=== PATIENT | female | born 1970 | race American Indian/Alaskan Native ===

== ENCOUNTER 2024-11-30 19:26 | Emergency (ER) | payer MEDICARE, MEDICAID ==
[~2024-11-30] VITALS: Ht 157.5 cm; Wt 99.0 kg
[2024-11-30] MEDS ORDERED: DAPTOmycin 500 MG/10 ML VIAL IV ONE (20:00)
[2024-11-30] MEDS ORDERED: SODIUM CHLORIDE 0.9% 1,000 ML IV ONE (20:00)
[2024-11-30 20:06] LABS: BASOPHILS 0.3 % (0.1-1.2); EOSINOPHILS 0.2 % (0.7-5.8); LYMPHOCYTES 4.3 % (19.3-51.7); MCH 21.7 PG (25.6-32.2); MCHC 29.7 g/dL (32.2-35.5); MCV 73.1 fL (79.4-94.8); MONOCYTES 4.5 % (4.7-12.5); NEUTROPHILS 90.2 % (34.0-71.1); RBC 4.98 M/uL (3.93-5.22)
[2024-11-30 20:16] LABS: INR 1.06 (0.80-1.30); PROTIME 13.1 Sec (11.2-14.2)
[2024-11-30 20:22] LABS: ALT (SGPT) 23.0 U/L (14-59); AST (SGOT) 10.0 U/L (15-37); GLOMERULAR FILTRATION RATE,EST 64.0 mL/min (>60); PROTEIN, TOTAL 7.8 g/dL (6.4-8.2); UREA NITROGEN 21.0 mg/dL (7-18)
[2024-11-30 20:27] LABS: LACTIC ACID, BLOOD 1.4 mmol/L (0.4-2.0)
[2024-11-30] MEDS ORDERED: MORPHINE SULFATE 4 MG/ML VIAL IV ONE (20:30)
[2024-11-30 23:04] LABS: BLOOD/HGB, URINE NEGATIVE (Negative); KETONE, URINE NEGATIVE (Negative); LEUK ESTERASE, URINE NEGATIVE (negative); NITRITE, URINE NEGATIVE (negative)
[2024-11-30] MEDS ORDERED: HYDROCODON-ACE1 EA10 PO (23:26)
[2024-11-30] MEDS ORDERED: ONDANSETRON ODT8 MG PO (23:26)
[2024-11-30] MEDS ORDERED: ONDANSETRON 4 MG HOME.PACK SL ONE (23:30)
[2024-11-30] MEDS ORDERED: HYDROCODONE BIT/ACETAMINOPHEN 5/325 MG 1 TAB HOME.PACK PO ONE (23:30)
[2024-11-30] MEDS ORDERED: DOXYCYCLINE HYCLATE 100 MG HOME.PACK PO ONE (23:30)
[2024-11-30 23:44] VITALS: BP 147/71
[2024-11-30] MEDS ORDERED: PROMETHAZINE HCL 25 MG SUPP. HOME.PACK PR ONE (23:45)
[2024-11-30] MEDS ORDERED: ONDANSETRON 4 MG TAB ODT SL ONE (23:45)
--- NOTE | 2024-12-03 07:53 | EKG ---
[facility] [address] [place], [place] [address] Signed Normal sinus rhythm Cannot rule out Anterior infarct , age undetermined Abnormal ECG No previous ECGs available Confirmed by Hang Elias MD ([id number]) on 12/03/2024 7:53:50 AM Electronically Signed By: HANG ELIAS MD 12/03/24 0753 PATIENT NAME: DARIN DOTSON [place]naz Electrocardiogram DATE OF : 72 PHYSICIAN: HANG ELIAS MD REPORT #: [id number] REPORT IS CONFIDENTIAL AND NOT TO BE RELEASED WITHOUT AUTHORIZATION
== END 2024-11-30 23:45 | disposition home or self-care (01) ==
LOC: ED 19:26
PROVIDERS: Family Medicine
DX: L03.312 Cellulitis of back [any part except buttock and flank] (principal); K52.9 Noninfective gastroenteritis and colitis, unspecified; E11.9 Type 2 diabetes mellitus without complications; Z91.018 Allergy to other foods
CPT/HCPCS: 36415; 51701; 71260; 80053; 81003; 82010; 82803; 83605; 85025; 85610; 93005; 93010; 99284-25; A9270; J0878; J1790; J2270; J2405; J7030; Q9967

== ENCOUNTER 2024-12-06 13:39 | Emergency (ER) | payer MEDICARE ==
[~2024-12-06] VITALS: Ht 157.5 cm; Wt 87.7 kg
[~2024-12-06 13:39] MED LIST: HYDROCODON-ACE1 EA10 PO; ONDANSETRON ODT8 MG PO
--- OUTSIDE RECORDS SUMMARY | 2024-12-06 13:43 | XMS ---
PreManage Notification: DARIN DOTSON Security Houseperson Events No recent Security Events currently on file CRITERIA MET - 6 ED Visits in 6 Months - [facility] - 2 Visits in 30 Days - [facility] - 3 Facilities in 90 Days CARE PROVIDERS [place] [facility] Current PHONE: [phone] Care Guidelines exist for the following facilities: [facility] ( 05/14/2016 ) [place] VISIT COUNT (12 MO.) 9 [facility] 2 [facility] [address] [facility] [place] 2 [facility] [address] [facility] [address] [facility]. TOTAL 17 NOTE: Visits indicate total known visits. ED/UCC VISIT TRACKING (12 MO.) 12/06/2024 13:40 [facility] [place] TYPE: Emergency COMPLAINT: - CHEST PAIN 12/03/2024 13:19 [facility] TYPE: Emergency DIAGNOSES: - Cellulitis of back [any part except buttock] - Cutaneous abscess, unspecified - Elevated white blood cell count, unspecified - terminal gauger supervisor (current) use of insulin - Low back pain, unspecified - Transient alteration of awareness - Type 2 diabetes mellitus without complications - Unspecified lump in the left breast, unspecified quadrant - cant breath, passing out - Shortness of Breath - Syncope 11/30/2024 19:28 [facility] [place] TYPE: Emergency COMPLAINT: - VOMITING DIAGNOSES: - Allergy to other foods - Cellulitis of back [any part except buttock] - Nausea with vomiting, unspecified - Noninfective gastroenteritis and colitis, unspecified - Type 2 diabetes mellitus without complications 11/29/2024 09:40 [facility] TYPE: Emergency DIAGNOSES: - Cutaneous abscess, unspecified - Cutaneous abscess, unspecified - Left lower quadrant pain - Wound Check 11/01/2024 13:11 [facility] [place] TYPE: Emergency COMPLAINT: - CHEST PAIN UNSPECIFIED - Chest Pain - HEMATURIA UNSPECIFIED - SHORTNESS OF BREATH DIAGNOSES: 0. Chest pain, unspecified 1. Chest pain, unspecified 5. Atherosclerotic heart disease of saxman coronary artery without angina pectoris 6. MCC (current) use of aspirin 10/19/2024 12:29 [facility] TYPE: Emergency DIAGNOSES: - Chest pain, unspecified - Elevated white blood cell count, unspecified - Chest Pain 10/10/2024 17:13 [facility] TYPE: Emergency DIAGNOSES: - Chest pain, unspecified - Chest Pain - Shortness of Breath 10/03/2024 18:01 [facility] TYPE: Emergency DIAGNOSES: - Pneumonia, unspecified organism - Weakness - Fever (9 Weeks To 74 Years) - pneumonia 09/07/2024 20:34 [facility] [place] TYPE: Emergency DIAGNOSES: - Abdominal distension (gaseous) - Constipation, unspecified - Other pneumonia, unspecified organism - Upper abdominal pain, unspecified - Bloated - Bloated; Inability to eat for a few days; (Thinks H-Pylori) 09/02/2024 22:08 [facility] TYPE: Emergency DIAGNOSES: - Chest pain, unspecified - Chest Pain - chest pain/ black out - Shortness of Breath [facility] [facility] DIAGNOSES: - Chest pain, unspecified - Shortness of breath - Chest Pain 04/29/2024 04:35 [facility] TYPE: Emergency DIAGNOSES: - Other specified soft tissue disorders - Allergic Reaction 04/15/2024 11:37 [facility] TYPE: Emergency DIAGNOSES: - Bacteremia - Dorsalgia, unspecified - Elevated white blood cell count, unspecified - need to be checked - Wound 04/06/2024 15:40 [facility] TYPE: Emergency DIAGNOSES: - Acute kidney failure, unspecified - Elevated erythrocyte sedimentation rate - Essential (primary) hypertension - Infective myositis, unspecified site - Low back pain, unspecified - Other specified abnormal findings of blood chemistry - Other viral agents as the cause of diseases classified elsewhere - Back pain - Skin Problem 04/02/2024 20:25 [facility] [place] TYPE: Emergency DIAGNOSES: - Follicular disorder, unspecified - Back Pain - open back wound, back pain 03/16/2024 09:41 [facility] TYPE: Emergency COMPLAINT: - Chest pain, unspecified DIAGNOSES: 1. Chest pain, unspecified 2. Dizziness and giddiness 01/02/2024 19:59 [facility] [place] TYPE: Emergency COMPLAINT: - DEHYDRATED,CONFUSED_KFD - dehydrated, confused - DORSALGIA UNSPECIFIED - DYSPNEA UNSPECIFIED - TYPE 2 DM W/HYPERGLYCEMIA DIAGNOSES: 0. Type 2 diabetes mellitus with hyperglycemia 1. Type 2 diabetes mellitus with hyperglycemia 5. Urinary tract infection, site not specified 6. Dehydration 7. [facility] (current) use of aspirin 8. terminal gauger supervisor (current) use of insulin 9. Other skilled nursing (current) drug therapy 10. 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 - Iron deficiency anemia secondary to blood loss (chronic) - Pain in right lower leg 10/10/2024 17:13 [facility] TYPE: Internal Medicine DIAGNOSES: - Chest pain, unspecified - Essential (primary) hypertension - Other allergic rhinitis - Other constipation - Unstable angina 10/03/2024 18:01 [facility] TYPE: Internal Medicine DIAGNOSES: - Disorder of kidney and ureter, unspecified - Pneumonia, unspecified organism - Weakness 04/15/2024 11:37 [facility] TYPE: Internal Medicine DIAGNOSES: - Acquired absence of right foot - Acute kidney failure, unspecified - Allergy status to other antibiotic agents - Bacteremia - Body mass index [BMI] 36.0-36.9, adult - Carrier or suspected carrier of Methicillin resistant Staphylococcus aureus - Cutaneous abscess, unspecified - Dorsalgia, unspecified - Elevated white blood cell count, unspecified - Encounter for screening, unspecified - Methicillin resistant Staphylococcus aureus infection, unspecified site - Methicillin susceptible Staphylococcus aureus infection, unspecified site - Personal history of other diseases of the musculoskeletal system and connective tissue - Personal history of urinary (tract) infections - Sebaceous cyst - Spondylosis without myelopathy or radiculopathy, lumbar region [email or web address]
[2024-12-06] MEDS ORDERED: METOPROLOL SUCC25 MG PO (14:02)
[2024-12-06] MEDS ORDERED: ATORVASTATIN CA40 MG PO (14:02)
[2024-12-06 14:03] LABS: BASOPHILS 0.2 % (0.1-1.2); EOSINOPHILS 0.5 % (0.7-5.8); LYMPHOCYTES 7.3 % (19.3-51.7); MCH 21.6 PG (25.6-32.2); MCHC 29.3 g/dL (32.2-35.5); MCV 73.9 fL (79.4-94.8); MONOCYTES 8.3 % (4.7-12.5); NEUTROPHILS 82.6 % (34.0-71.1); RBC 4.76 M/uL (3.93-5.22)
[2024-12-06] MEDS ORDERED: LACTULOSE10 GM/151 PO (14:03)
[2024-12-06] MEDS ORDERED: DEXCOM G61 EAC2 (14:03)
[2024-12-06] MEDS ORDERED: DEXCOM G61 EACH (14:03)
[2024-12-06] MEDS ORDERED: INSULIN AS100 UNIT/3 (14:03)
[2024-12-06] MEDS ORDERED: SERTRALINE HCL50 MG PO (14:04)
[2024-12-06] MEDS ORDERED: LEVOFLOXACIN500 MG PO (14:04)
[2024-12-06] MEDS ORDERED: OMEPRAZOLE20 MG PO (14:04)
[2024-12-06] MEDS ORDERED: LANTUS SOL100 UNIT/1 SUB-Q (14:04)
[2024-12-06] MEDS ORDERED: FLUCONAZOLE150 MG PO (14:05)
[2024-12-06] MEDS ORDERED: IPRAT-ALBUT 0.5-3 ML INH (14:05)
[2024-12-06] MEDS ORDERED: LEVOTHYROXINE50 MCG PO (14:05)
[2024-12-06] MEDS ORDERED: [UNRECOGNIZED DRUG - OTHER] (14:05)
[2024-12-06] MEDS ORDERED: ROPINIROLE HC0.25 MG PO (14:06)
[2024-12-06] MEDS ORDERED: BRIMONIDINE TART5 ML OPTH (14:06)
[2024-12-06] MEDS ORDERED: DORZOLAMIDE-TIM10 ML OPTH (14:06)
[2024-12-06] MEDS ORDERED: HYDROXYZINE HCL10 MG PO (14:07)
[2024-12-06] MEDS ORDERED: HYDROCHLOROTHIA25 MG PO (14:07)
[2024-12-06] MEDS ORDERED: KETOCONAZOLE120 ML TOP (14:07)
[2024-12-06] MEDS ORDERED: FEROSUL325 MG PO (14:07)
[2024-12-06] MEDS ORDERED: CETIRIZINE HCL10 MG PO (14:07)
[2024-12-06] MEDS ORDERED: CLOBETASOL PROP15 GM TOP (14:07)
[2024-12-06] MEDS ORDERED: NITROGLYCERIN0.4 MG SL (14:08)
[2024-12-06] MEDS ORDERED: TRIAMCINOLONE A15 GM (14:08)
[2024-12-06] MEDS ORDERED: MONTELUKAST SOD10 MG PO (14:08)
[2024-12-06] MEDS ORDERED: JARDIANCE25 MG PO (14:08)
[2024-12-06] MEDS ORDERED: PREDNISONE20 MG (14:08)
[2024-12-06] MEDS ORDERED: LOSARTAN POTASS25 MG PO (14:09)
[2024-12-06] MEDS ORDERED: CLINDAMYCIN HC300 MG PO (14:09)
[2024-12-06] MEDS ORDERED: CEPHALEXIN500 MG PO (14:09)
[2024-12-06] MEDS ORDERED: PRASUGREL HCL10 MG PO (14:10)
[2024-12-06] MEDS ORDERED: DROPLET NE EAC MC (14:10)
[2024-12-06] MEDS ORDERED: DOXYCYCLINE HY100 MG PO (14:10)
[2024-12-06] MEDS ORDERED: CLOBETASOL PROP50 ML TOP (14:10)
[2024-12-06] MEDS ORDERED: METHOCARBAMOL750 MG NG (14:10)
[2024-12-06 14:22] LABS: ALT (SGPT) 19 U/L (14-59); AST (SGOT) 8 U/L (15-37); GLOMERULAR FILTRATION RATE,EST 57 mL/min (>60); PROTEIN, TOTAL 7.5 g/dL (6.4-8.2); UREA NITROGEN 28 mg/dL (7-18)
[2024-12-06] MEDS ORDERED: CEPHALEXIN500 M1 PO (16:29)
[2024-12-06] MEDS ORDERED: BACTRIM DS TAB1 EACH PO (16:29)
[2024-12-06] MEDS ORDERED: ACETAMINOPHEN 500 MG TAB PO ONE (16:30)
[2024-12-06 16:49] VITALS: BP 126/68
--- NOTE | 2024-12-06 22:06 | EKG ---
[facility] [address] [place] [address] Signed Normal sinus rhythm Normal ECG When compared with ECG of 30-NOV-2024 19:50, Minimal criteria for Anterior infarct are no longer present Confirmed by Paola Garcias MD () on 12/06/2024 10:06:47 PM Electronically Signed By: PAOLA GARCIAS MD 12/06/24 2206 PATIENT NAME: DARIN DOTSON Electrocardiogram DATE OF : 72 PHYSICIAN: PAOLA GARCIAS MD REPORT #: [id number] REPORT IS CONFIDENTIAL AND NOT TO BE RELEASED WITHOUT AUTHORIZATION
--- NOTE | 2024-12-06 22:09 | EKG ---
[facility] [address] [place] [address] Signed Normal sinus rhythm Normal ECG When compared with ECG of 06-DEC-2024 13:36, No significant change was found Confirmed by Paola Garcias MD ([id number]) on 12/06/2024 10:09:37 PM Electronically Signed By: PAOLA GARCIAS MD 12/06/24 2209 PATIENT NAME: DARIN DOTSON Electrocardiogram DATE OF : 72 PHYSICIAN: PAOLA GARCIAS MD REPORT #: [id number] REPORT IS CONFIDENTIAL AND NOT TO BE RELEASED WITHOUT AUTHORIZATION
== END 2024-12-06 16:49 | disposition home or self-care (01) ==
LOC: ED 13:39
PROVIDERS: Emergency Medicine
DX: L02.212 Cutaneous abscess of back [any part, except buttock and flank] (principal); R07.89 Other chest pain; Z91.018 Allergy to other foods; Z79.899 Other long term (current) drug therapy
CPT/HCPCS: 10060; 36415; 71045; 80053; 83735; 84484; 85025; 87205; 93005; 93010; 99285-25; A9270; J2405